=== PATIENT | male | born 1995 | race Caucasian/White ===

== ENCOUNTER 2023-05-20 18:28 | Emergency (ER) | payer OTHER, SELFPAY ==
[2023-05-20 18:48] VITALS: BP 123/67; PULSE 62; RESP 16; TEMP 36.3; O2SAT 100
--- NOTE | 2023-05-20 19:29 | PC.NURSE ---
Patient approached intake desk and informed sports writer that he is going to leave and not wait anymore. Patient alert and ambulatory out the ED exit.
== END 2023-05-20 19:29 | disposition left against medical advice (07) ==
LOC: ANHED 19:36
PROVIDERS: PCP Family Medicine
DX: S01.81XA Laceration without foreign body of other part of head, initial encounter (principal)
CPT/HCPCS: 99199